=== PATIENT | male | born 2000 | race Caucasian/White ===

== ENCOUNTER 2025-01-23 07:44 | Emergency (ER) | payer OTHER ==
[~2025-01-23] VITALS: Ht 180.3 cm; Wt 97.5 kg
[2025-01-23] MEDS ORDERED: CITALOPRAM HBR20 MG PO (07:58)
[2025-01-23 08:18] VITALS: BP 121/95
== END 2025-01-23 08:21 | disposition home or self-care (01) ==
LOC: ED 07:44
DX: R23.4 Changes in skin texture (principal)
CPT/HCPCS: 99283